=== PATIENT | female | born 1955 | race Caucasian/White ===

== ENCOUNTER 2017-06-09 10:26 | Outpatient (CLI) | payer OTHER ==
--- NOTE | 2017-06-09 17:45 | XRAY Report ---
RIGHT HIP AND PELVIS: 06/09/2017 CLINICAL INDICATION: Pain, decreased range of motion. FINDINGS: Frontal view of the hips and pelvis and frogleg lateral view of the right hip demonstrate mild osteoarthritis. There is no evidence of acute fracture or dislocation. Postoperative changes a re noted in the pelvis. IMPRESSION: MILD OSTEOARTHRITIS. JOB #: [id number] EXT JOB #:[id number]
== END 2017-06-09 10:27 | disposition home or self-care (01) ==
LOC: DI.S 10:26
PROVIDERS: ATTEND Physician Assistant
DX: M25.551 Pain in right hip (principal); M16.11 Unilateral primary osteoarthritis, right hip; R29.898 Other symptoms and signs involving the musculoskeletal system

== ENCOUNTER 2017-06-09 11:00 | Outpatient (CLI) | payer OTHER ==
--- NOTE | 2017-06-10 11:56 | Mammography Report ---
DIGITAL SCREENING MAMMOGRAM: 06/09/2017 CLINICAL INDICATION: A 62-year-old with family history of breast cancer, for screening. COMPARISON: 12/2015, 01/2014, 09/2009. TECHNIQUE: Routine CC and MLO projections were obtained of the breasts. Bilateral laterally exaggera kaiden craniocaudal views. FINDINGS: Scattered fibroglandular tissue is present within the breasts. There are no dominant griselda s, suspicious microcalcifications, or secondary signs of malignancy. In comparison to the previous st udies, there are no significant changes. ASSESSMENT: NO MAMMOGRAPHIC EVIDENCE OF MALIGNANCY. NO SIGNIFICANT INTERVAL CHANGES. RECOMMENDATION: Screening mammography is recommended annually. BIRADS category 1 - negative. STANDARD QUALIFYING STATEMENTS 1. This examination was reviewed with the aid of Computed-Aided Detection (CAD). 2. A negative or benign imaging report should not delay biopsy if clinically suspicious findings are present. Consider surgical consultation if warranted. More than 5% of cancers are not identified by i maging. 3. Dense breasts may obscure an underlying neoplasm. JOB #: [id number] EXT JOB #:[id number]
== END 2017-06-09 23:59 | disposition home or self-care (01) ==
LOC: DI.S 11:00
PROVIDERS: ATTEND Physician Assistant
DX: Z12.31 Encounter for screening mammogram for malignant neoplasm of breast (principal); Z80.3 Family history of malignant neoplasm of breast
CPT/HCPCS: 77067

== ENCOUNTER 2018-06-22 11:17 | Outpatient (CLI) | payer OTHER ==
--- NOTE | 2018-06-24 16:41 | Mammography Report ---
Reason: SCREENING MAMMO Procedure Date: 06/22/2018 Accession Number: [id number] / [id number] Procedure: NIKA - Screening Mammo Dig Bilat CPT Code: FULL RESULT: EXAM: Screening Mammo Dig Bilat DATE: 06/22/2018 11:56 AM CLINICAL HISTORY: 63-year-old female presents for screening mammogram. TECHNIQUE: Bilateral CC and MLO views were obtained. COMPARISON: 06/09/2017, 01/10/2016, 02/09/2014, 10/11/2009. FINDINGS: The breasts demonstrate scattered fibroglandular densities bilaterally. A stable nodule in the left lateral breast demonstrates an appearance most suggestive of a lymph node, seen as far back as 2009. No suspicious masses, clustered microcalcifications, or regions of architectural distortion are identified. IMPRESSION: Benign findings RECOMMENDATION: Routine annual screening unless otherwise clinically indicated. BIRADS CATEGORY 2: Benign findings STANDARD QUALIFYING STATEMENTS: 1. This examination was not reviewed with the aid of Computer-Aided Detection (CAD). 2. A negative or benign imaging report should not delay biopsy if clinically suspicious findings are present. Consider surgical consultation if warrented. More than 5% of cancers are not identified by imaging. 3. Dense breasts may obscure an underlying neoplasm. 4. This examination was reviewed without the aid of 3D breast imaging (tomosynthesis).
== END 2018-06-22 11:18 | disposition home or self-care (01) ==
LOC: DI 11:17
PROVIDERS: ATTEND Physician Assistant
DX: Z12.31 Encounter for screening mammogram for malignant neoplasm of breast (principal)
CPT/HCPCS: 77067

== ENCOUNTER 2019-04-10 08:37 | Emergency (ER) | payer MEDICARE, OTHER ==
[2019-04-10] MEDS ORDERED: DEXAMETHASONE 10 MG/ML VIAL PO STA (09:56)
[2019-04-10] MEDS ORDERED: CHERRY SYRUP 10 ML UDC PO ONE (09:56)
[2019-04-10] MEDS ORDERED: KETOROLAC 60 MG/2 ML VIAL IM STA (09:57)
--- NOTE | 2019-04-10 09:59 | ED Physician Documentation ---
PD HPI LOWER EXT INJURY - Stated complaint Stated Complaint: LT KNEE PX - Chief complaint Chief Complaint: Ext Problem - History obtained from History obtained from: Patient - History of Present Illness PD HPI LOW EXT INJURY LOCATION: Left, Knee Type of injury: Other (overuse) Where injury occurred: Work Timing - onset: How many weeks ago (1) Timing - duration: Weeks (1) Timing - details: Gradual onset, Still present Improved by: Rest, Immobilization Worsened by: Moving, Palpating Associated symptoms: Swelling. 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 She is been doing a lot more getting up and down than usual. She has developed pain that usually improves over the weekend and when she went back to to class on Wednesday her pain became intolerable. She is now ambulating with a cane and having some difficulty getting up and down. She has some swelling to her knee she has not had a fever. She has had prior cortisone injections and she has had a replacement done to the right knee. Review of Systems Constitutional: denies: Fever Eyes: denies: Decreased vision Ears: denies: Ear pain Nose: denies: Congestion Throat: denies: Sore throat Respiratory: denies: Cough GI: denies: Vomiting PD PAST MEDICAL HISTORY - Past Medical History Cardiovascular: High cholesterol, Hypertension GI: GERD Psych: Anxiety - Past Surgical History Past Surgical History: Yes General: Other Ortho: Knee replacement - Present Medications Home Medications: Ambulatory Orders Medication Instructions Recorded Confirmed Alprazolam [Xanax] 1 mg PO DAILY PRN 12/31/15 12/31/15 Aspirin [Matty Chewable] 81 mg PO DAILY 12/31/15 12/31/15 Atenolol [Tenormin] 50 mg PO DAILY 12/31/15 12/31/15 Celecoxib [CeleBREX] 100 mg PO DAILY 12/31/15 12/31/15 Ciprofloxacin HCl [Cipro] 500 mg PO BID #10 tablet 12/31/15 Sucralfate 1 gm PO ACHS #30 tablet 12/31/15 - Allergies Allergies/Adverse Reactions: Allergies Allergy/AdvReac Type Severity Reaction Status Date / Time atorvastatin calcium * Allergy Unknown Verified 04/10/19 08:59 [From Lipitor] Sulfa (Sulfonamide Allergy Rash Verified 04/10/19 08:59 Antibiotics) fluvastatin sodium * AdvReac Unknown Verified 04/10/19 08:59 [From Lescol] gabapentin AdvReac Cramps Verified 04/10/19 08:59 lisinopril AdvReac Unknown Verified 04/10/19 08:59 - Social History Does the pt smoke?: No Smoking Status: Never smoker Does the pt drink ETOH?: Yes Does the pt have substance abuse?: No - Immunizations Immunizations: TDAP >10years/unknown, Other immun current PD ED PE NORMAL - Vitals Vital signs reviewed: Yes (hypertensive mild ) - General General: Alert and oriented X 3, Well developed/nourished - HEENT HEENT: Atraumatic, PERRL, EOMI - Respiratory Respiratory: No respiratory distress - Derm Derm: Normal color, Warm and dry, No rash - Extremities Extremities: No deformity, No edema, Other (There is a small joint effusion palpable and there is pain to ROM with the knee. There is a spot of skin with dry skin discolored looks like a bruise but appears to be hyperpigmented dry skin. Not likely related as this has been present for months according to the patient. Ligaments are stable and the distal n/v is intact. ) - Neuro Neuro: Alert and oriented X 3, record tester 2-12 intact, No motor deficit, No sensory deficit, Normal speech Eye Opening: Spontaneous Motor: Obeys Commands Verbal: Oriented GCS Score: 15 - Psych Psych: Normal mood, Normal affect Results - Vitals Vitals: Vital Signs - 24 hr 04/10/19 08:57 Temperature 36.4 C L Heart Rate 61 Respiratory 18 Rate Blood Pressure 139/71 H O2 Saturation 95 Oxygen O2 Source Room air - Rads (name of study) left knee Radiology: Prelim report reviewed (Impression: 1. Moderate tricompartmental DJD, especially patellofemoral and medial joint compartments. No subluxation. 2. Moderate joint effusion. 3. A 4.5 x 3 cm ossicle adjacent to the lateral superior aspect of the patella, question sequela of remote fracture or somewhat unusual bipartite patella. Bone demineralization. 4. No acute fracture.), EMP read indepedently, See rad report PD MEDICAL DECISION MAKING - ED course Complexity details: re-evaluated patient, considered differential, d/w patient ED course: 64-year-old female with what appears to be a reactive arthritis to the left knee has had prior x-rays and knows she needs a replacement. She is administered Dexamethasone 10 mg orally, she is given a shot of Toradol and we will refer her to the orthopedics across [address] here for potential injection. She is placed into a knee immobilizer. Departure - Departure Disposition: 01 Home, Self Care Clinical Impression: Reactive arthritis of knee Condition: Stable Instructions: ED Degenerative Joint Disease Follow-Up: Malissa Scott PA [Primary Care Provider] - [facility] [Provider Group]
--- NOTE | 2019-04-10 10:02 | XRAY Report ---
Reason: Pain with ambulation Procedure Date: 04/10/2019 Accession Number: [id number] / [id number] Procedure: XR - Knee 4 View LT CPT Code: FULL RESULT: EXAM: LEFT KNEE RADIOGRAPHY EXAM DATE: 04/10/2019 09:17 AM. CLINICAL HISTORY: Left knee pain with ambulation. No known injury. COMPARISON: None. TECHNIQUE: 4 views. FINDINGS: Bones: Mild bone demineralization. No acute fracture or bone destructive process. It is smoothly marginated ossicle 3 x 4.5 cm adjacent to the lateral superior aspect of the patella. Joints: No subluxation. Tricompartmental marginal spurring and moderate joint space narrowing especially patellofemoral and medial joint compartments. Moderate joint effusion. Soft Tissues: Possible mild prepatellar swelling. IMPRESSION: 1. Moderate tricompartmental DJD, especially patellofemoral and medial joint compartments. No subluxation. 2. Moderate joint effusion. 3. A 4.5 x 3 cm ossicle adjacent to the lateral superior aspect of the patella, question sequela of remote fracture or somewhat unusual bipartite patella. 4. Mild bone demineralization. No acute fracture. RADIA
[2019-04-10 10:21] VITALS: BP 155/79
== END 2019-04-10 10:21 | disposition home or self-care (01) ==
LOC: ED 08:37
DX: M02.362 Reiter's disease, left knee (principal); M17.12 Unilateral primary osteoarthritis, left knee; Z96.651 Presence of right artificial knee joint; I10 Essential (primary) hypertension; Z79.82 Long term (current) use of aspirin
CPT/HCPCS: 73564; 96372; 99283; 99284; A9270

== ENCOUNTER 2019-07-25 10:30 | Outpatient (CLI) | payer MEDICARE ==
--- NOTE | 2019-07-31 02:25 | XRAY Report ---
Reason: RT SHOULDER PAIN Procedure Date: 07/25/2019 Accession Number: [id number] / [id number] Procedure: XR - Shoulder 3 View RT CPT Code: Final Report FULL RESULT: EXAM: RIGHT SHOULDER RADIOGRAPHY EXAM DATE: 07/25/2019 10:44 AM. CLINICAL HISTORY: RT SHOULDER PAIN. COMPARISON: None. TECHNIQUE: 3 views. FINDINGS: Bones: No fracture seen. Joints: No dislocation seen. Mild degenerative changes in the glenohumeral joint and acromioclavicular joint. Soft tissues: Grossly unremarkable. IMPRESSION: 1. Degenerative joint disease. RADIA
== END 2019-07-25 10:31 | disposition home or self-care (01) ==
LOC: DI 10:30
PROVIDERS: ATTEND Nurse Practitioner Family
DX: M19.011 Primary osteoarthritis, right shoulder (principal)

== ENCOUNTER 2019-12-25 13:01 | Outpatient (CLI) | payer MEDICARE ==
--- NOTE | 2019-12-25 15:14 | XRAY Report ---
Reason: COUGH Procedure Date: 12/25/2019 Accession Number: [id number] / [id number] Procedure: XR - Chest 2 View X-Ray CPT Code: 55675 Final Report FULL RESULT: EXAM: CHEST RADIOGRAPHY EXAM DATE: 12/25/2019 01:17 PM. CLINICAL HISTORY: COUGH. COMPARISON: CHEST 2 VIEW PA/LAT 12/31/2015 3:43 PM. TECHNIQUE: 2 views. FINDINGS: Lungs/Pleura: No focal opacities evident. No pleural effusion. No pneumothorax. Normal volumes. Mediastinum: Heart and mediastinal contours are unremarkable. Other: None. IMPRESSION: No acute intrathoracic plain film abnormality. RADIA
== END 2019-12-25 13:02 | disposition home or self-care (01) ==
LOC: DI 13:01
PROVIDERS: ATTEND Physician Assistant
DX: R05 Cough (principal); F17.200 Nicotine dependence, unspecified, uncomplicated
CPT/HCPCS: 71046

== ENCOUNTER 2020-01-24 16:47 | Outpatient (CLI) | payer MEDICARE ==
--- NOTE | 2020-01-29 09:01 | MRI Report ---
Reason: RIGHT SHOULDER PAIN Procedure Date: 01/24/2020 Accession Number: [id number] / [id number] Procedure: MRI - Shoulder RT W/O CPT Code: Final Report FULL RESULT: EXAM: RIGHT SHOULDER MRI WITHOUT CONTRAST EXAM DATE: 01/24/2020 05:42 PM. CLINICAL HISTORY: RIGHT SHOULDER PAIN. COMPARISON: None. TECHNIQUE: Multiplanar, multisequence T1-weighted and fluid-sensitive sequences of the shoulder without contrast. Other: None. FINDINGS: Rotator cuff: Full-thickness tear of the distal supraspinatus measures 2.0 cm anteroposterior and 2.0 cm medial to lateral. Ill-defined partial-thickness articular surface tear involving distal upper fibers of the infraspinatus measuring up to 2.5 cm medial to lateral. Thickening and increased T2 signal throughout the distal remaining infraspinatus. Minimal atrophy involving the supraspinatus, infraspinatus and teres minor. Long head biceps tendon: Intact demonstrating normal course and morphology. Labrum: Intact. No tear is identified. Onset articular surfaces: Mild cartilage thinning and surface irregularity within the glenohumeral joint. Acromioclavicular joint: Moderate degenerative change with osteophyte formation and marrow edema. Small volume of fluid within subacromial/subdeltoid bursa. Large volume of fluid within the subcoracoid bursa. Type II acromion. IMPRESSION: 1. Full-thickness tear of the distal supraspinatus measuring 2.0 x 2.0 cm. 2. Ill-defined partial-thickness distal articular surface tear of the infraspinatus with moderate tendinosis. 3. Moderate degenerative change at the acromioclavicular joint. 4. Subcoracoid bursitis. RADIA
== END 2020-01-24 16:48 | disposition home or self-care (01) ==
LOC: DI 16:47
PROVIDERS: ATTEND Nurse Practitioner Family
DX: M75.121 Complete rotator cuff tear or rupture of right shoulder, not specified as traumatic (principal); M19.011 Primary osteoarthritis, right shoulder; M75.51 Bursitis of right shoulder

== ENCOUNTER 2020-06-12 12:46 | Outpatient (CLI) | payer MEDICARE ==
--- NOTE | 2020-06-12 16:03 | XRAY Report ---
PROCEDURE: Hips 2V BILAT INDICATIONS: PAIN IN RT HIP TECHNIQUE: 2 views of the hip were acquired. COMPARISON: None FINDINGS: Bones: No fractures or dislocations. No suspicious bony lesions. The visualized pelvic ring appear s intact. There is moderate to severe right and [id number] left degenerative narrowing of the hip joints. Degenerative changes are present within the lower lumbar spine. Soft tissues: No suspicious soft tissue calcifications or masses. IMPRESSION: Right greater than left osteoarthritis within the hips. Reviewed by: Dana Smith MD on 06/12/2020 4:02 PM PDT Approved by: Dana Smith MD on 06/12/2020 4:02 PM PDT Station ID: [id number]
== END 2020-06-12 12:47 | disposition home or self-care (01) ==
LOC: DI 12:46
PROVIDERS: ATTEND Nurse Practitioner Family
DX: M16.0 Bilateral primary osteoarthritis of hip (principal)
CPT/HCPCS: 73521

== ENCOUNTER 2020-06-19 12:10 | Outpatient (CLI) | payer MEDICARE ==
--- NOTE | 2020-06-19 13:22 | CT Report ---
PROCEDURE: PELVIS WO INDICATIONS: OSTEOARTHRITIS OF BILATERAL HIP JOINTS, LOW BACK P TECHNIQUE: Noncontrast 3 mm axial sections acquired through the bony pelvis, with coronal and sagittal reformatt ing. For radiation dose reduction, the following was used: automated exposure control, adjustment of mA and/or kV according to patient size. COMPARISON: Plain films of the pelvis dated 06.12. FINDINGS: Image quality: Excellent. Bones: There is severe right hip joint space narrowing and moderate right hip periarticular osteophy te formation. Subchondral cysts within the right superior femoral head as well as the right superior acetabulum are present. There is moderate left hip joint space narrowing and mild left hip joint shweta articular osteophyte formation. Disc space narrowing and endplate osteophyte formation at L4-L5 and L 5-S1 are present. Facet hypertrophy at L4-L5 and L5-S1 are present. Soft tissues: Visualized bowel loops and vasculature are normal in caliber. There is an incompletely visualized fat-containing anterior pelvic wall hernia measuring at least 34 mm. Sigmoid colon anasto mosis is present. Diverticulosis of the descending and sigmoid colon is present. No regional adenopat hy. No fluid collections. IMPRESSION: 1. Right greater than left hip osteoarthritis. 2. Lumbosacral degenerative disc and facet disease. 3. Fat-containing anterior pelvic wall hernia, which is incompletely visualized. Reviewed by: Pravin Sullivan MD on 06/19/2020 1:20 PM PDT Approved by: Pravin Sullivan MD on 06/19/2020 1:20 PM PDT Station ID: [id number]
--- NOTE | 2020-06-19 15:42 | XRAY Report ---
PROCEDURE: Lumbar Spine 2 View INDICATIONS: OSTEOARTHRITIS OF BILATERAL HIP JOINTS, LOW BACK P TECHNIQUE: 2 views of the lumbar spine were acquired. COMPARISON: None. FINDINGS: Bones: 5 [id number] vertebrae are present. There is grade 1 anterolisthesis of L4 on L5, L5 on S1. Moderate to severe disc space narrowing is present at L1-L2, L2-3, L4-5, L5-S1. Minimal bilatera l foraminal narrowing is noted L4-5 and L5-S1. Nonbridging anterior osteophytes are present most nota ble at T12, L1 and L2.. No vertebral body compression fractures. No suspicious bony lesions. Soft tissues: Overlying bowel gas pattern is normal. No suspicious soft tissue calcifications. IMPRESSION: Degenerative changes most notable at L5-S1 as above. Reviewed by: Dana Smith MD on 06/19/2020 3:41 PM PDT Approved by: Dana Smith MD on 06/19/2020 3:41 PM PDT Station ID: [id number]
== END 2020-06-19 12:11 | disposition home or self-care (01) ==
LOC: DI 12:10
PROVIDERS: ATTEND Nurse Practitioner Family
DX: M51.37 Other intervertebral disc degeneration, lumbosacral region (principal); M16.0 Bilateral primary osteoarthritis of hip; M79.7 Fibromyalgia; Z68.41 Body mass index [BMI] 40.0-44.9, adult
CPT/HCPCS: 36415; 72100; 72192; 81599; 84443; 85651; 86038; 86140; 86200; 86812

== ENCOUNTER 2020-06-19 12:30 | Outpatient (CLI) | payer MEDICARE | END 2020-06-19 12:31 | disposition home or self-care (01) | LOC: LAB 12:30 | PROVIDERS: ATTEND Nurse Practitioner Family | DX: M79.7 Fibromyalgia (principal); Z68.41 Body mass index [BMI] 40.0-44.9, adult | CPT/HCPCS: 36415; 81599; 84443; 85651; 86038; 86140; 86200; 86812 ==

== ENCOUNTER 2020-08-19 15:20 | Outpatient (CLI) | payer MEDICARE ==
--- NOTE | 2020-08-19 17:45 | XRAY Report ---
PROCEDURE: Orbits Complete INDICATIONS: CONTUSION OF ORBITAL TISSUES - BILATERAL TECHNIQUE: 4 views of the orbits acquired. COMPARISON: None FINDINGS: Bones: No fractures; orbital rims appear intact throughout. No suspicious bony lesions. Visualized sinuses appear clear. Soft tissues: No suspicious soft tissue calcifications or densities. IMPRESSION: No trauma. Please note CT scanning provides a more accurate assessment for orbital and facial trauma due to the normal overlap of numerous osseous margins on plain film imaging. Reviewed by: Arley Avelar MD on 08/19/2020 5:44 PM [facility] Approved by: Arley Avelar MD on 08/19/2020 5:44 PM PST Station ID: [id number]
== END 2020-08-19 15:21 | disposition home or self-care (01) ==
LOC: DI.S 15:20
PROVIDERS: ATTEND Nurse Practitioner Family
DX: S05.10XA Contusion of eyeball and orbital tissues, unspecified eye, initial encounter (principal)
CPT/HCPCS: 70200

== ENCOUNTER 2021-04-09 10:57 | Outpatient (CLI) | payer MEDICARE ==
--- NOTE | 2021-04-10 12:48 | Mammography Report ---
BILATERAL DIGITAL SCREENING MAMMOGRAM 3D/2D WITH EXAGGERATED CC: 04/09/2021 CLINICAL: Family history of breast cancer. Comparison is made to exams dated: 06/22/2018 mammogram, 06/09/2017 mammogram, and 01/10/2016 mammogram - [facility]. There are scattered fibroglandular elements in both breasts. No significant masses, calcifications, or other findings are seen in either breast. There has been no significant interval change. IMPRESSION: NEGATIVE There is no mammographic evidence of malignancy. A 1 year screening mammogram is recommended. This exam was interpreted at Station ID: [id number]. NOTE: For mammograms, a report in lay terms will be sent to the patient. Approximately 15% of breast malignancies will not be visualized mammographically. In the management of a palpable breast mass, a negative mammogram must not discourage biopsy of a clinically suspicious lesion. Electronically Signed By: Fahad Pena M.D. ddp/penrad:04/09/2021 11:44:07 ACR BI-RADS Category 1: Negative 3341F PARENCHYMAL PATTERN: (A) - The breast(s) demonstrate(s) scattered fibroglandular densities. BI-RADS CATEGORY: (1) - 1 RECOMMENDATION: (ANNUAL) - Recommend routine annual screening mammography. [id number] 1 year screening LATERALITY: (B)
== END 2021-04-09 10:58 | disposition home or self-care (01) ==
LOC: DI.S 10:57
DX: Z12.31 Encounter for screening mammogram for malignant neoplasm of breast (principal)

== ENCOUNTER 2021-09-01 10:58 | Outpatient (CLI) | payer MEDICARE ==
--- NOTE | 2021-09-01 16:59 | XRAY Report ---
PROCEDURE: Hand 2 View BILAT INDICATIONS: PRIMARY OSTEOARTHRITIS TECHNIQUE: 2 views of the right and left hand(s) acquired. COMPARISON: None FINDINGS: Bones: No fractures or dislocations. No suspicious bony lesions. Osteoarthritic degenerative change s noted in the left CMC joint, the left second through fifth DIP joints and the left fifth PIP joint . Osteophytic degenerative changes noted in the right triscaphe joint, CMC joint, first through fifth DIP joints and the fourth and fifth PIP joints. Soft tissues: No suspicious soft tissue calcifications. IMPRESSION: Osteoarthritis as described above. Reviewed by: Latoya Aldrich MD, PhD on 09/01/2021 4:58 PM PST Approved by: Latoya Aldrich MD, PhD on 09/01/2021 4:58 PM PST Station ID: [id number]
== END 2021-09-01 10:59 | disposition home or self-care (01) ==
LOC: DI 10:58
PROVIDERS: ATTEND Nurse Practitioner Family
DX: M18.0 Bilateral primary osteoarthritis of first carpometacarpal joints (principal); M19.041 Primary osteoarthritis, right hand; M19.042 Primary osteoarthritis, left hand

== ENCOUNTER 2021-09-08 10:58 | Outpatient (CLI) | payer MEDICARE ==
--- NOTE | 2021-09-08 16:30 | Ultrasound Report ---
PROCEDURE: Abdomen Limited INDICATIONS: HERNIA OF ABD WALL TECHNIQUE: Real-time focused scanning was performed of the abdomen, with image documentation. COMPARISON: None FINDINGS: There is a fat-containing periumbilical hernia within the subcutaneous fat measuring 5.8 x 4.3 x 4.9 cm. No evidence of bowel involvement. Hernia is not completely reducible IMPRESSION: Periumbilical hernia containing fat without bowel involvement Reviewed by: Lenny Gomes MD on 09/08/2021 3:28 PM [place] Approved by: Lenny Gomes MD on 09/08/2021 3:28 PM [place] Station ID: [id number]
== END 2021-09-08 10:59 | disposition home or self-care (01) ==
LOC: DI 10:58
PROVIDERS: ATTEND Nurse Practitioner Family
DX: K42.9 Umbilical hernia without obstruction or gangrene (principal); M85.88 Other specified disorders of bone density and structure, other site; Z78.0 Asymptomatic menopausal state

== ENCOUNTER 2021-09-08 11:02 | Outpatient (CLI) | payer MEDICARE ==
--- NOTE | 2021-09-08 17:04 | DEXA Report ---
PROCEDURE: Dexa Spine and/or Hip INDICATIONS: POST MENOPAUSAL TECHNIQUE: Dual energy x-ray absorptiometry (DXA) was performed on a [employer]. Regions measur ed are the AP Spine, femoral neck, and if needed forearm. COMPARISON: None. FINDINGS: Lumbar Spine: Bone Mineral Density 1.193 g/cm/cm,T score 0.1, normal Left Hip: Bone Mineral Density 0.915 g/cm/cm,T score -0.7, normal Left Femoral Neck: Bone Mineral Density 0.845 g/cm/cm, T score -1.4, osteopenia (T score greater or equal to -1.0: NORMAL) (T score from -1.1 to -2.4: OSTEOPENIA) (T score less than or equal to -2.5 to: OSTEOPOROSIS) Impression: Osteopenia. Patients with diagnosis of osteoporosis or osteopenia should have regular bone mineral density assess ment. For those eligible for Medicare, routine testing is allowed once every 2 years. Testing frequ ency can be increased for patients who have rapidly progressing disease or for those who are receivin g medical therapy to restore bone mass. Reviewed by: Latoya Aldrich MD, PhD on 09/08/2021 5:03 PM PST Approved by: Latoya Aldrich MD, PhD on 09/08/2021 5:03 PM PST Station ID: [id number]
== END 2021-09-08 11:03 | disposition home or self-care (01) ==
LOC: DI 11:02
PROVIDERS: ATTEND Nurse Practitioner Family
DX: M85.88 Other specified disorders of bone density and structure, other site (principal); Z78.0 Asymptomatic menopausal state

== ENCOUNTER 2022-10-29 12:47 | Outpatient (CLI) | payer MEDICARE ==
--- NOTE | 2022-10-29 14:53 | XRAY Report ---
PROCEDURE: Lumbar Spine 2 View INDICATIONS: LUMBAR RADICULOPATHY TECHNIQUE: 2 views of the lumbar spine were acquired. COMPARISON: Xray lumbar spiine 06/19/2020 FINDINGS: Bones: 5 [id number]-[id number] vertebrae are present. There is 6 mm anterolisthesis of L4 on L5, unchange d. There is severe disc space narrowing at L4-5 and L5-S1, slightly progressive with moderate to rosangela re at L1-2, L2-3. Severe foraminal narrowing is present at L4-5 and L5-S1, progressive. No vertebral body compression fractures. No suspicious bony lesions. Bridging anterior osteophytes are present most notable at the thoracolumbar junction. Soft tissues: Overlying bowel gas pattern is normal. No suspicious soft tissue calcifications. IMPRESSION: Progressive appearance of multilevel degenerative changes most severe at L5-S1. Reviewed by: Dana Smith MD on 10/29/2022 2:52 PM PST Approved by: Dana Smith MD on 10/29/2022 2:52 PM PST Station ID: [id number]
== END 2022-10-29 12:48 | disposition home or self-care (01) ==
LOC: DI.S 12:47
PROVIDERS: ATTEND Nurse Practitioner Family
DX: M47.26 Other spondylosis with radiculopathy, lumbar region (principal); M47.817 Spondylosis without myelopathy or radiculopathy, lumbosacral region

== ENCOUNTER 2022-10-30 12:16 | Outpatient (CLI) | payer MEDICARE ==
--- NOTE | 2022-10-30 14:40 | CT Report ---
PROCEDURE: LUMBAR SPINE WO INDICATIONS: LUMBAR RADICULOPATHY TECHNIQUE: Noncontrast 3 mm thick sections acquired from the T12 level to the sacrum. Sagittal and coronal refo rmats were constructed. For radiation dose reduction, the following was used: automated exposure co ntrol, adjustment of mA and/or kV according to patient size. COMPARISON: Lumbar spine radiographs dated 10/29/2022. FINDINGS: Image quality: Excellent. Bones: There is 4 mm grade 1 anterolisthesis of L4 on L5. No acute vertebral body compression fractur es. No suspicious lytic or blastic bony lesions. No pars defects. T12-L1: Loss of disc space height and vacuum disc phenomenon as well as circumferential disc bulging . Findings result in moderate right and mild left neural foraminal narrowing without significant spin al canal stenosis. L1-L2: Loss of disc space height and vacuum disc phenomenon as well as circumferential disc bulgin g. Findings result in mild bilateral neural foraminal narrowing without significant spinal canal sten osis. L2-L3: Loss of disc space height and vacuum disc phenomenon as well as circumferential disc bulgin g. Findings result in mild right and mild to moderate left neural foraminal narrowing and mild narrow ing of the spinal canal. L3-L4: Mild circumferential disc bulging and mild bilateral facet hypertrophy, which result in mild bilateral facet hypertrophy without significant spinal canal stenosis. L4-L5: There is grade 1 anterolisthesis of L4 on L5 with uncovering of the disc as well as loss of disc space height and vacuum disc phenomenon and moderate bilateral facet hypertrophy. Findings resul t in moderate narrowing of the spinal canal as well as severe right and moderate to severe left neura l foraminal narrowing. L5-S1: Loss of disc space height with posterior disc-osteophyte complex and moderate bilateral face t hypertrophy. Findings result in severe bilateral neural foraminal narrowing without significant spi nal canal stenosis. Soft tissues: No retroperitoneal masses or hematomas. Visualized aorta is normal in caliber. Postsu rgical changes are seen at the rectosigmoid junction. Multiple colonic diverticula are noted. Mild ao rtic atherosclerotic calcifications. IMPRESSION: 1.At L4-5, grade 1 anterolisthesis and superimposed degenerative changes result in moderate narrowing of the spinal canal as well as severe right and moderate to severe left neural foraminal narrowing. 2.At L5-S1, degenerative changes result in severe bilateral neural foraminal narrowing without signif icant spinal canal stenosis. 3.Additional multilevel degenerative disc disease and facet hypertrophy as described in detail in the body of the report. Reviewed by: Cuate Parekh MD on 10/30/2022 2:38 PM PST Approved by: Cuate Parekh MD on 10/30/2022 2:38 PM PST Station ID: [id number]
== END 2022-10-30 12:17 | disposition home or self-care (01) ==
LOC: DI 12:16
PROVIDERS: ATTEND Nurse Practitioner Family
DX: M43.16 Spondylolisthesis, lumbar region (principal); M54.16 Radiculopathy, lumbar region; M48.061 Spinal stenosis, lumbar region without neurogenic claudication; M47.27 Other spondylosis with radiculopathy, lumbosacral region; M48.07 Spinal stenosis, lumbosacral region; M51.16 Intervertebral disc disorders with radiculopathy, lumbar region; M48.05 Spinal stenosis, thoracolumbar region; M47.26 Other spondylosis with radiculopathy, lumbar region

== ENCOUNTER 2023-01-14 12:50 | Outpatient (CLI) | payer MEDICARE | END 2023-01-14 12:51 | disposition home or self-care (01) | LOC: NS 12:50 | PROVIDERS: ATTEND Internal Medicine | DX: Z71.3 Dietary counseling and surveillance (principal); R73.01 Impaired fasting glucose; E66.01 Morbid (severe) obesity due to excess calories; K26.9 Duodenal ulcer, unspecified as acute or chronic, without hemorrhage or perforation; K58.0 Irritable bowel syndrome with diarrhea; K21.9 Gastro-esophageal reflux disease without esophagitis; K44.9 Diaphragmatic hernia without obstruction or gangrene; Z68.41 Body mass index [BMI] 40.0-44.9, adult; Z71.89 Other specified counseling; Z79.84 Long term (current) use of oral hypoglycemic drugs | CPT/HCPCS: 97802 ==

== ENCOUNTER 2023-07-07 13:12 | Outpatient (CLI) | payer MEDICARE ==
[2023-07-07 20:55] LABS: CREATININE,URINE 216.2 mg/dL; MICROALBUM/CREATININE RATIO,UR 7.9 ug/mg (<30.0); MICROALBUMIN,URINE 1.7 mg/dL
[2023-07-07 22:14] LABS: ESTIMATED AVERAGE GLUCOSE 126 mg/dL (70-100)
== END 2023-07-07 13:13 | disposition home or self-care (01) ==
LOC: LAB.S 13:12
PROVIDERS: ATTEND Internal Medicine
DX: R73.01 Impaired fasting glucose (principal); G25.0 Essential tremor
CPT/HCPCS: 36415; 82043; 82570; 83036; 84550

== ENCOUNTER 2023-08-16 11:26 | Outpatient (CLI) | payer MEDICARE ==
--- NOTE | 2023-08-16 13:02 | XRAY Report ---
PROCEDURE: Shoulder 2 View LT INDICATIONS: PAIN IN LEFT SHOULDER,INFLAMMATORY ARTHRITIS TECHNIQUE: 2 views of the shoulder were acquired. COMPARISON: None. FINDINGS: Bones: No fractures or dislocations. Moderate degenerative changes of the acromioclavicular and murphy ohumeral joints. No suspicious bony lesions. Visualized ribs appear intact. Soft tissues: No suspicious soft tissue calcifications. The visualized lungs are within normal limi ts. IMPRESSION: No acute bony abnormality. Moderate degenerative changes of the acromioclavicular and glenohumeral surya int. No osseous erosions are seen. Reviewed by: Oscar Clark MD on 08/16/2023 1:00 PM PST Approved by: Oscar Clark MD on 08/16/2023 1:00 PM PST Station ID: [id number]
== END 2023-08-16 11:27 | disposition home or self-care (01) ==
LOC: DI.S 11:26
PROVIDERS: ATTEND Internal Medicine
DX: M19.012 Primary osteoarthritis, left shoulder (principal)
CPT/HCPCS: 81374

== ENCOUNTER 2023-09-23 08:00 | Outpatient (CLI) | payer MEDICARE ==
--- NOTE | 2023-09-23 20:39 | XRAY Report ---
PROCEDURE: Shoulder 2 View LT INDICATIONS: LEFT SHOULDER PAIN TECHNIQUE: 2 views of the shoulder were acquired. COMPARISON: None FINDINGS: Bones: No fractures or dislocations. No suspicious bony lesions. Visualized ribs appear intact. S evere glenohumeral joint space narrowing with marginal osteophytes at. AC joint degenerative changes noted as well Soft tissues: No suspicious soft tissue calcifications. IMPRESSION: Severe glenohumeral osteoarthritis Reviewed by: Lenny Gomes MD on 09/23/2023 7:37 PM [place] Approved by: Lenny Gomes MD on 09/23/2023 7:37 PM AKST Station ID: [id number]
== END 2023-09-23 23:59 | disposition home or self-care (01) ==
LOC: DI.WOS 08:00
PROVIDERS: ATTEND Physician Assistant Surgical
DX: M19.012 Primary osteoarthritis, left shoulder (principal)

== ENCOUNTER 2023-12-08 14:18 | Outpatient (CLI) | payer MEDICARE, MEDICAID ==
[2023-12-08 20:08] LABS: BASOPHILS % (AUTO) 0.3 %; EOSINOPHILS # (AUTO) 0.1 10^3/uL (0.0-0.7); EOSINOPHILS % (AUTO) 1.2 %; HCT - HEMATOCRIT 41.4 % (37.0-47.0); HGB - HEMOGLOBIN 13.5 g/dL (12.0-16.0); LYMPHOCYTES # (AUTO) 1.1 10^3/uL (1.5-3.5); LYMPHOCYTES % (AUTO) 15.6 %; MEAN CORPUSCULAR HEMOGLOBIN 26.1 pg (27.0-31.0); MEAN CORPUSCULAR HGB CONC 32.6 g/dL (32.0-36.0); MEAN CORPUSCULAR VOLUME 79.9 fL (81.0-99.0); MEAN PLATELET VOLUME 10.3 fL (7.9-10.8); MONOCYTES # (AUTO) 0.6 10^3/uL (0.0-1.0); MONOCYTES % (AUTO) 8.2 %; NEUTROPHILS % (AUTO) 74.4 %; PLT - PLATELET COUNT 196 10^3/uL (130-450); RED BLOOD COUNT 5.18 10^6/uL (4.20-5.40); RED CELL DISTRIBUTION WIDTH 13.4 % (12.0-15.0); WHITE BLOOD COUNT 6.7 x10^3/uL (4.8-10.8)
[2023-12-08 20:09] LABS: ALBUMIN 4.3 g/dL (3.2-5.5); ALBUMIN/GLOBULIN RATIO 1.8 (1.0-2.2); BILIRUBIN,TOTAL 0.4 mg/dL (0.2-1.0); CALCIUM 9.6 mg/dL (8.5-10.3); CREATININE 0.7 mg/dL (0.6-1.3); POTASSIUM 3.5 mmol/L (3.5-4.5); TOTAL PROTEIN 6.7 g/dL (6.4-8.9)
[2023-12-08 23:03] LABS: ESTIMATED AVERAGE GLUCOSE 114 mg/dL (70-100); HEMOGLOBIN A1c% 5.6 % (4.27-6.07)
== END 2023-12-08 14:19 | disposition home or self-care (01) ==
LOC: LAB.S 14:18
PROVIDERS: ATTEND Internal Medicine
DX: L40.50 Arthropathic psoriasis, unspecified (principal); E11.9 Type 2 diabetes mellitus without complications
CPT/HCPCS: 36415; 80053; 83036; 85025; 85651; 86140

== ENCOUNTER 2024-03-14 08:00 | Outpatient (CLI) | payer MEDICARE, MEDICAID ==
--- NOTE | 2024-03-15 09:36 | Mammography Report ---
BILATERAL DIGITAL SCREENING MAMMOGRAM 3D/2D: 03/14/2024 CLINICAL: Routine screening. Family history of breast cancer. Comparison is made to exams dated: 04/09/2021 mammogram, 06/22/2018 mammogram, and 06/09/2017 mammogram - [facility]. There are scattered areas of fibroglandular density in both breasts (category b / 25%-50% glandular t issue). No significant masses, calcifications, or other findings are seen in either breast. There has been no significant interval change. IMPRESSION: NEGATIVE There is no mammographic evidence of malignancy. A 1 year screening mammogram is recommended. Based on the Tyrer Cuzick model (a risk assessment model) the patient's lifetime risk is 5.9% and her 10 year risk is 3.5%. According to the ACR, ACS, and NCCN guidelines, an annual breast MRI exam nacho g with mammogram is recommended if the patient's lifetime risk is 20% or greater. This exam was interpreted at Station ID: [id number]. NOTE: For mammograms, a report in lay terms will be sent to the patient. Approximately 15% of breast malignancies will not be visualized mammographically. In the management of a palpable breast mass, a negative mammogram must not discourage biopsy of a clinically suspicious lesion. Electronically Signed By: Cuate ornelas/mike:03/14/2024 14:03:33 letter sent: No_Letter ACR BI-RADS Category 1: Negative 3341F PARENCHYMAL PATTERN: (A) - The breast(s) demonstrate(s) scattered fibroglandular densities. BI-RADS CATEGORY: (1) - 1 RECOMMENDATION: (ANNUAL) - Recommend routine annual screening mammography. [id number] 1 year screening LATERALITY: (B)
== END 2024-03-14 23:59 | disposition home or self-care (01) ==
LOC: DI.S 08:00
DX: Z12.31 Encounter for screening mammogram for malignant neoplasm of breast (principal); R92.323 Mammographic fibroglandular density, bilateral breasts; Z80.3 Family history of malignant neoplasm of breast